=== PATIENT | male | born 1965 | race Two or more races ===

== ENCOUNTER 2024-09-22 23:07 | Emergency (ER) | payer OTHER, MEDICAID ==
[~2024-09-22] VITALS: Ht 162.6 cm; Wt 62.6 kg
[2024-09-22 23:11] VITALS: TEMP 98.6
[2024-09-22] MEDS ORDERED: FUROSEMIDE 40 MG/4 ML VIAL ONE (23:37)
[2024-09-22] MEDS: FUROSEMIDE 40 MG/4 ML VIAL IV ONE (23:40)
[2024-09-22 23:53] LABS: PLATELET COUNT (AUTO) 235 K/uL (150-450); RED BLOOD CELL COUNT(AUTO) 3.14 MIL/uL (4.5-6.0); RED CELL DISTRIBUTION WIDTH 20.0 % (11.5-15.0); WHITE BLOOD COUNT (AUTO) 20.6 K/uL (4.3-11.0)
[2024-09-22 23:56] LABS: ABG BASE EXCESS 3.8 mmol/L (-2.0-3.0); ABG OXYGEN SATURATION 99.3 % (94.0-98.0); ABG PCO2 44.9 mmHg (35.0-48.0); ABG PH 7.424 (7.350-7.450); ABG PO2 185.0 mmHg (83.0-108.0); ABG TOTAL HEMOGLOBIN 10.3 G/dL (13.5-17.5); FLOW, BLOOD GAS 10.00 L/min (0.00-30.00); FRACTIONATED INSPIRED OXYGEN 60.0 %; SITE, ABG LEFT BRACHIAL
[2024-09-23 00:06] LABS: CALCIUM, SERUM 8.2 mg/dL (8.5-10.1); CREATININE 4.7 mg/dL (0.6-1.3); SODIUM SERUM 130 mmol/L (136-145); UREA NITROGEN, BLOOD 55 mg/dL (7-18)
[2024-09-23] MEDS ORDERED: ALBUTEROL FS 2.5 MG/3 ML VIAL.NEB ONE (00:10)
[2024-09-23 00:11] LABS: LACTIC ACID 0.7 mmol/L (0.4-2.0)
[2024-09-23 00:17] VITALS: O2SAT 99
[2024-09-23] MEDS: ALBUTEROL FS 2.5 MG/3 ML VIAL.NEB NEB ONE (00:18)
[2024-09-23 00:19] VITALS: BP 119/60
[2024-09-23 00:21] LABS: ASPARTATE AMINOTRANSFERASE 12 U/L (15-37); TOTAL PROTEIN, SERUM 5.7 g/dL (6.4-8.2)
[2024-09-23 00:27] VITALS: O2SAT 100; O2SAT 97
[2024-09-23 00:59] LABS: NT-PRO BNP 217568 pg/mL (0-125)
== END 2024-09-23 04:45 | disposition short-term general hospital (02) ==
LOC: ER 23:09
DX: I13.2 Hypertensive heart and chronic kidney disease with heart failure and with stage 5 chronic kidney disease, or end stage renal disease (principal); R06.02 Shortness of breath; I50.9 Heart failure, unspecified; E11.22 Type 2 diabetes mellitus with diabetic chronic kidney disease; N18.6 End stage renal disease; E03.9 Hypothyroidism, unspecified; F41.9 Anxiety disorder, unspecified; E78.5 Hyperlipidemia, unspecified; E87.70 Fluid overload, unspecified; Z88.5 Allergy status to narcotic agent; Z95.0 Presence of cardiac pacemaker; Z99.2 Dependence on renal dialysis; Z87.39 Personal history of other diseases of the musculoskeletal system and connective tissue
CPT/HCPCS: 99285; 96374; 71045; 93005; 82803; 85025; 87040; 83605; 36415; 80053; 84484; 83880; 36600; 87081; 94799; 94640; J1938